=== PATIENT | female | born 1985 | race Caucasian/White ===

== ENCOUNTER 2018-07-14 17:00 | Inpatient (IN) | payer SELFPAY ==
[~2018-07-14] VITALS: Ht 157.5 cm; Wt 63.4 kg
[2018-07-14 17:33] VITALS: Ht 157.5 cm; Wt 63.4 kg
[2018-07-14] MEDS ORDERED: MISOPROSTOL 200 MCG TAB PR PRN (18:00)
[2018-07-14] MEDS ORDERED: BUTORPHANOL 2 MG INJ IV PRN (18:00)
[2018-07-14] MEDS ORDERED: CARBOPROST 250 MCG INJ IM PRN (18:00)
[2018-07-14] MEDS ORDERED: OXYTOCIN 30 UNITS/LR 500 ML IV PRN (18:00)
[2018-07-14] MEDS ORDERED: LIDOCAINE 1% (MPF) 30 ML INJ INJ PRN (18:00)
[2018-07-14] MEDS ORDERED: IBUPROFEN 600 MG TAB PO PRN (18:00)
[2018-07-14] MEDS ORDERED: METHYLERGONOVINE 0.2 MG INJ IM PRN (18:00)
[2018-07-14] MEDS ORDERED: OXYTOCIN 30 UNITS/LR 500 ML IV SCH ×2 (18:00)
[2018-07-14] MEDS: LACTATED RINGER'S 1,000 ML IV SCH (18:56)
[2018-07-14] MEDS: MISOPROSTOL 50 MCG CAPSULE VAG SCH (20:29)
[2018-07-14] MEDS ORDERED: MISOPROSTOL 100 MCG TAB VAG SCH (21:00)
[2018-07-15] MEDS: MISOPROSTOL 50 MCG CAPSULE VAG SCH ×3 (00:31→09:00)
[2018-07-15] MEDS: LACTATED RINGER'S 1,000 ML IV SCH ×3 (00:31→11:23)
[2018-07-15] MEDS ORDERED: OXYTOCIN 30 UNITS/LR 500 ML IV SCH ×2 (10:00→16:06)
--- NOTE | 2018-07-15 10:41 | PREAC ---
Date/Time of Note Date/Time of Note DATE: 07/15/18 TIME: 10:40 Anesthesia Eval and Record Evaluation Time Pre-Procedure Interview DATE: 07/15/18 TIME: 10:40 Age 33 Sex female NPO: 8 hrs Preoperative diagnosis Planned procedure Labor Epidural Past Medical History Past Medical History: None Surgery & Anesthesia Issues No known issue Meds Anticoagulation: No Beta Tosin within 24 hr: No Reason Beta Tosin not given: Pt. not on B-Tosin No Active Prescriptions or Reported Meds Current Medications Lactated Ringer's 1,000 ml @ 125 mls/hr Q8H IV Last administered on 07/15/18at 09:10; Admin Dose 125 MLS/HR; Start 07/14/18 at 17:34 Butorphanol Tartrate (Stadol) 2 mg Q2H PRN IV PAIN; Start 07/14/18 at 18:00 Lidocaine (Xylocaine 1% (Mpf)) 30 ml ONCE PRN INJ EPISIOTOMY; Start 07/14/18 at 18:00 Oxytocin/Lactated Ringer's 500 ml @ 500 mls/hr ONCE POST IV ; Start 07/14/18 at 18:00 Oxytocin/Lactated Ringer's 500 ml @ 125 mls/hr POST IV ; Start 07/14/18 at 18:00 Ibuprofen (Motrin) 600 mg ONCE PRN PO PAIN LEVEL 1-5; Start 07/14/18 at 18:00 Oxytocin/Lactated Ringer's 500 ml @ 0 mls/hr ONCE PRN IV VAGINAL BLEEDING; Start 07/14/18 at 18:00 Methylergonovine Maleate (Methergine) 0.2 mg ONCE PRN IM VAGINAL BLEEDING; Start 07/14/18 at 18:00 Carboprost Tromethamine (Hemabate) 250 mcg ONCE PRN IM VAGINAL BLEEDING; Start 07/14/18 at 18:00 Misoprostol (Cytotec) 1,000 mcg ONCE PRN [place] VAGINAL BLEEDING; Start 07/14/18 at 18:00 Misoprostol (Cytotec 50 Mcg Capsule) 50 mcg Q4 VAG Last administered on 07/15/18at 05:05; Admin Dose 50 MCG; Start 07/14/18 at 21:00; Stop 07/15/18 at 17:01 Oxytocin/Lactated Ringer's 500 ml @ 0 mls/hr FOR INDUCTION IV ; Start 07/15/18 at 10:00 Meds reviewed: Yes Allergies Coded Allergies: No Known Drug Allergies (Unverified Allergy, Unknown, 03/28/15) Allergies Reviewed: Yes Labs/Studies Labs Reviewed: Reviewed by anesthesiologist Result Diagram: 07/14/18 1745 Laboratory Tests 07/14/18 17:45 Blood Bank Test 07/14/18 17:45 Antibody Screen NEGATIVE Blood Type B POSITIVE Rh Immune Globulin Candidate NO test: Positive Pre-procedure Exam Airway: Adequate mouth opening, Adequate thyromental dist Mallampati: Mallampati II Teeth: Normal Lung: Normal Heart: Normal ASA Physical Status ASA physical status: 1 Emergency: None Planned Anesthetic Neuraxial: Epidural Pre-operative Attestations Prior to commencing anesthesia and surgery, the patient was re-evaluated, there was verification of: *The patient's identity *The results of appropriate recent lab work and preoperative vital signs *The above evaluation not changing prior to induction *Anesthetic plan, risk benefits, alternative and complications discussed with patient/family; questions answered; patient/family understands, accepts and wishes to proceed. JAZMÍN TEIXEIRA Jul 15, 2018 10:41
[2018-07-15] MEDS ORDERED: FENTAnyl 2MCG/ML-ROPIV 0.2% 100 ML BAG EPI SCH (11:00)
[2018-07-15] MEDS ORDERED: NALOXONE (0.4 MG/ML) INJ IV PRN (11:00)
[2018-07-15] MEDS ORDERED: ONDANSETRON 4 MG INJ IV PRN ×2 (11:00→16:30)
[2018-07-15] MEDS ORDERED: HYDROmorphONE 0.5 MG/0.5 ML SYG IV PRN ×2 (11:00)
[2018-07-15] MEDS ORDERED: DIPHENHYDRAMINE 50 MG INJ IV PRN (11:00)
[2018-07-15] MEDS ORDERED: KETOROLAC 30 MG INJ IV PRN (11:00)
--- NOTE | 2018-07-15 14:03 | HP ---
Date/Time of Note Date/Time of Note DATE: 07/15/18 TIME: 13:58 OB - History Hx of Present Free Text/Dictation 33 years old white female 39 weeks 2 days with a EDC July 21, 2018 admitted to the hospital for induction of labor. Chief Complaint: 39 weeks 2 days Estimated Due Date: Jul 21, 2018 : 2 Para: 1 Care: Limited Care Ultrasounds: Other (Recent ultrasound. Ultrasound second trimester in [place]) Obstetrical Complications: None Past Family/Social History * Past Medical, Surgical, Family and Obstetric Histories reviewed from chart. Rubella: immune GBS Status: Negative HBsAG: Negative OB Admission Exam Physical Exam HEENT: WNL Heart: Rhythm Normal Lungs: Clear, Equal Abdomen: WNL Extremities: Normal Reflexes: Normal Cervical Dilatation: None Station: -2 Membranes: Intact Heart Rate: 130's Accelerations: Accelerations Present Decelerations: No Decelerations Last 72 hours Lab Results CBC & BMP 07/14/18 17:45 OB Assessment/Plan Reason for admission: other (39 weeks plus admitted to the hospital for induction of labor) Other plan: 33 years white female at 39 weeks plus. Admitted to the hospital for induction of labor. Process of induction discussed complication may arise from induction explained. BRENDON RANGEL MD Jul 15, 2018 14:03
--- NOTE | 2018-07-15 14:32 | LDN ---
Date/Time of Note Date/Time of Note DATE: 07/15/18 TIME: 14:30 Delivery Summary Normal spontaneous vaginal delivery of a baby boy from OA position. Cord was around the baby's neck tight 1 time. Shoulders delivered without any difficulty. Rest of the baby's body followed. Cord clamped after stopped pulsation. Placenta is spontaneous expulsion inspected complete. Perineovaginal exam first-degree perineal laceration repaired with 3-0 chromic catgut estimated blood loss 200 cc Weeks of Gestation 39 weeks 2 days Placenta Delivered: Spontaneously Meconium: none Episiotomy: No Laceration repair: First-degree perineal vaginal laceration repaired with 3-0 chromic catgut Estimated blood loss: 200 Sponge & Needle done & correct: Yes All needle counts correct: Yes Any foreign bodies felt in the: No Infant Delivery Information Sex Infant Sex: male Apgars 1 Minute: 9 5 Minute: 9 Suctioning Delee suction performed: No Umbilical Cord Umbilical cord with: 3 Vessels Cord presentations: nuchal cord Cord Blood was obtained: Yes BRENDON RANGEL MD Jul 15, 2018 14:32
[2018-07-15 15:54] VITALS: BP 105/59; PULSE 65; RESP 16
[2018-07-15 16:25] VITALS: BP 104/65; PULSE 69; RESP 20
[2018-07-15] MEDS ORDERED: WITCH HAZEL/GLYCERIN PAD PR PRN (16:30)
[2018-07-15] MEDS ORDERED: ACETAMINOPHEN 325 MG TAB PO PRN (16:30)
[2018-07-15] MEDS ORDERED: BENZOCAINE 20% 56 ML SPRAY TOP PRN (16:30)
[2018-07-15] MEDS ORDERED: HYDROCODONE/APAP (5/325) TAB PO PRN ×2 (16:30)
[2018-07-15] MEDS ORDERED: LANOLIN HPA 1 PKT TOP PRN (16:30)
[2018-07-15] MEDS ORDERED: OXYCODONE/ASPIRIN (4.88/325) TAB PO PRN ×2 (16:30)
--- NOTE | 2018-07-15 17:50 | PAC ---
Date/Time of Note Date/Time of Note DATE: 07/15/18 TIME: 17:50 Post-Anesthesia Notes Post-Anesthesia Note Last documented vital signs Vital Signs Date Temp Pulse Resp B/P (MAP) Pulse Ox O2 O2 Flow FiO2 Time Delivery Rate 07/15/18 69 20 104/65 16:25 (78) 07/15/18 99.6 Room Air 15:54 Activity: WNL Respiratory function: WNL Cardiovascular function: WNL Mental status: Baseline Pain reasonably controlled: Yes Hydration appropriate: Yes Nausea/Vomiting absent: Yes JAZMÍN TEIXEIRA Jul 15, 2018 17:50
[2018-07-15] MEDS: IBUPROFEN 600 MG TAB PO SCH (18:00)
--- NOTE | 2018-07-15 18:07 | NUR ---
EOSS; BONDING WELL, DUE TO VOID, ASSISTED TO BATHROOM, LEG STILL A LITTLE NUMB FROM EPIDURAL, UNABLE TO VOID, LOCHIA MODERATE, FUNDUS FIRM AT UMBILICUS, WILL CONTINUE TO MONITOR.
[2018-07-15 20:00] VITALS: BP 110/66; PULSE 72; RESP 20
[2018-07-15] MEDS: SENNA/DOCUSATE NA (8.6MG/50MG) TAB PO SCH (20:11)
[2018-07-16] VITALS: BP 101/65; PULSE 62; RESP 19
[2018-07-16] MEDS: IBUPROFEN 600 MG TAB PO SCH ×3 (00:09→11:37)
[2018-07-16 04:00] VITALS: BP_SYST 102; BP_SYST 85; BP_DIAS 54; BP_DIAS 66; PULSE 73; RESP 18
[2018-07-16 04:15] VITALS: BP 92/56; PULSE 72; RESP 18
--- NOTE | 2018-07-16 05:03 | NUR ---
EOSS: PATIENT IN STABLE CONDITION. BONDING WELL WITH , AND WELL. FUNDUS FIRM WITH SMALL AMOUNT OF LOCHIA. ABLE TO PASS GAS. AMBULATING. AFEBRILE.
[2018-07-16 08:30] VITALS: BP 92/53; PULSE 74; RESP 18
[2018-07-16] MEDS: SENNA/DOCUSATE NA (8.6MG/50MG) TAB PO SCH (08:34)
[2018-07-16 11:30] VITALS: BP 90/64; PULSE 87; RESP 18
--- NOTE | 2018-07-16 12:25 | DS ---
Date/Time of Note Date/Time of Note DATE: 07/16/18 TIME: 12:20 Discharge Summary Admission/Discharge Info Admit Date/Time Jul 14, 2018 at 17:12 Discharge Date/Time July 15, 2018 at 1800 Patient Condition: Good Consults None Procedures Normal vaginal delivery Hx of Present Illness Term admitted to the hospital for induction, 39 weeks gestation Hospital Course Satisfactory recovery. Home Meds No Active Prescriptions or Reported Meds Follow-up Plan Patient would like to be discharged today examination. Dominant soft. Uterus firm. Lochia moderate. Perineovaginal exam normal. Extremities normal. discharge instructions given recommended to make appointment to be seen at the office in 1 week Primary Care Provider Not On Staff Doctor Time spent on discharge: < 30 minutes Pending Labs Laboratory Tests Test 07/16/18 06:40 White Blood Count 9.1 10^3/ul (4.8-10.8) Red Blood Count 3.97 10^6/ul (4.20-5.40) Hemoglobin 10.7 g/dl (12.0-16.0) Hematocrit 32.7 % (37.0-47.0) Mean Corpuscular Volume 82.4 fl (82.0-101.0) Mean Corpuscular Hemoglobin 27.0 pg (29.0-33.0) Mean Corpuscular Hemoglobin Concent 32.7 g/dl (32.0-37.0) Red Cell Distribution Width 12.6 % (11.5-14.5) Platelet Count 136 10^3/UL (140-415) Mean Platelet Volume 10.4 fl (7.4-10.4) Immature Granulocytes % 0.400 % (0.001-0.429) Neutrophils % 62.4 % (39.0-77.0) Lymphocytes % 25.2 % (15.0-51.0) Monocytes % 10.5 % (0.0-11.0) Eosinophils % 1.2 % (0.0-7.0) Basophils % 0.3 % (0.0-2.0) Nucleated Red Blood Cells % 0.0 /100WBC (0.0-0.0) Immature Granulocytes # 0.040 10^3/ul (0.0-0.031) Neutrophils # 5.7 10^3/ul (1.6-7.5) Lymphocytes # 2.3 10^3/ul (0.8-2.9) Monocytes # 1.0 10^3/ul (0.3-0.9) Eosinophils # 0.1 10^3/ul (0.0-0.5) Basophils # 0.0 10^3/ul (0.0-0.1) Nucleated Red Blood Cells # 0.0 10^3/ul (0.0-0.0) BRENDON RANGEL MD Jul 16, 2018 12:25
--- NOTE | 2018-07-16 17:47 | NUR ---
SS NOTE: CONSULT ORACLE TECHNICAL DEVELOPER SW WAS CALLED TO SEE MOB SHE IS DISCHARGED BUT BABY IS NOT AND PARENTS WANT TO TAKE BABY HOME AMA. THIS SW AND HELP DESK COORDINATOR, RENA MET WITH MOB, [address] , FOB, AND THEIR COUSIN IN THE ROOM. RENA EXPLAINED THAT THE REASON BABY SHOULD REMAIN IN THE HOSPITAL IS DUE TO HIS LAB RESULTS AND HIS WEIGHT LOSS. PARENTS REPORTED THAT THEY UNDERSTAND PT'S CONDITION. THEY REPORTED THAT THEIR OLDER CHILD HAD THE SAME ISSUE AND HE WAS FINE. THEY REPORTED THAT THEY HAVE AN APPOINTMENT WITH BABY'S TICKET DISPATCHER, DR. HOLDEN IN [place] ON FRIDAY. THEY ALSO REPORTED THAT BABY'S MATERNAL GRANDFATHER IS A TICKET DISPATCHER SO THEY UNDERSTAND THE SITUATION. PARENTS WERE ENCOURAGED TO SPEAK WITH THE TICKET DISPATCHER BEFORE THEY MAKE THEIR DECISION FOR LEAVING AMA. PARENTS AGREED. CARLOS DE LA [place] CONTACTED DR. NAGEL WHO SPOKE WITH THE PARENTS ON THE PHONE AND EXPLAINED ABOUT BABY'S CONDITION. EXPLAINED THAT PARENTS CAN STAY TONIGHT AND HAVE BABY'S LABS CHECKED AGAIN IN AM OR THEY CAN GO HOME WITH THE AGREEMENT THAT THEY WILL F/U WITH HER IN HER OFFICE TOMORROW AM. PARENTS DISCUSSED THEIR OPTIONS AND INFORMED THAT THEY WANT TO GO HOME AND F/U WITH DR. NAGEL TOMORROW AM. THEY WANT BABY TO HAVE THE HEP B SHOT BEFORE LEAVING. RN WILL ALSO PROVIDE PARENTS WITH DR. NAGEL'S OFFICE INFO FOR PARENTS TO F/U IN AM. RN WILL F/U WITH RE: FAMILY'S DECISION. SW WILL REMAIN AVAILABLE NEEDED.
[2018-07-17] MEDS ORDERED: MEASLES,MUMPS,RUBELLA VACCINE INJ SC* ONE (09:00)
== END 2018-07-16 19:03 | disposition home or self-care (01) | DRG 807 ==
LOC: L-D 17:12 → PP1 07-15 15:53
PROVIDERS: ADMIT Obstetrics & Gynecology; ATTEND Obstetrics & Gynecology
PROC: 4A1HXCZ Monitoring of Products of Conception, Cardiac Rate, External Approach (ICD-10-PCS; 2018-07-14)
PROC: 3E0P7GC Introduction of Other Therapeutic Substance into Female Reproductive, Via Natural or Artificial Opening (ICD-10-PCS; 2018-07-14)
PROC: 10E0XZZ Delivery of Products of Conception, External Approach (ICD-10-PCS; principal; 2018-07-15)
PROC: 0HQ9XZZ Repair Perineum Skin, External Approach (ICD-10-PCS; 2018-07-15)
DX: O69.1XX0 Labor and delivery complicated by cord around neck, with compression, not applicable or unspecified (principal); O70.0 First degree perineal laceration during delivery; Z37.0 Single live birth; Z3A.39 39 weeks gestation of pregnancy
CPT/HCPCS: 62319; 76815; 85025; 85610; 85730; 86592; 86762; 86850; 86900; 86901; 87340; 99464; J2210; J2405; J2590; J3010; J7120